=== PATIENT | male | born 1960 | race Caucasian/White ===

== ENCOUNTER 2023-10-07 23:55 | Emergency (ER) | payer OTHER ==
[~2023-10-07] VITALS: Ht 170.2 cm; Wt 85.0 kg
[2023-10-08 00:01] VITALS: TEMP 98.2; O2SAT 100
[2023-10-08] MEDS ORDERED: HYDROCODONE/ACETAMINOPHEN 5/325MG TABLET PO ONE (01:15)
[2023-10-08] MEDS ORDERED: LIDOCAINE HCL/EPINEPHRINE 1%-EPI 1:100,000 20 ML VIAL INFIL ONE (01:15)
[2023-10-08] MEDS ORDERED: LIDOCAINE HCL 1%/EPI 1:200,000 30 ML VIAL IJ ONE (01:30)
[2023-10-08 01:39] VITALS: BP 145/82; PULSE 70; RESP 16
[2023-10-08] MEDS ORDERED: TRAM50TA3 MT (01:52)
== END 2023-10-08 04:19 | disposition home or self-care (01) ==
LOC: ER 23:55
DX: S82.831A Other fracture of upper and lower end of right fibula, initial encounter for closed fracture (principal); W18.39XA Other fall on same level, initial encounter; Y93.89 Activity, other specified; Y92.89 Other specified places as the place of occurrence of the external cause; Y99.8 Other external cause status
CPT/HCPCS: 29515; 99284; 73610; 73630; J3490; Z7610 ×2; 99283